=== PATIENT | male | born 1965 | race African-American/Black ===

== ENCOUNTER 2019-09-05 16:55 | Inpatient (IN) | payer OTHER, BC ==
[~2019-09-05] VITALS: Ht 190.5 cm; Wt 82.6 kg
[2019-09-05 17:15] VITALS: BP_SYST 143
--- NOTE | 2019-09-05 18:55 | NUR ---
Patient to ER bed 05 to gown for evaluation. Side rails up.
--- NOTE | 2019-09-05 19:00 | NUR ---
Patient brought in by ambulance in the ED c/o pain on the left big toe that started a couple of days ago. Patient denied any chest pain or shortness of breath. Denied any fevers, chills, nausea, or vomiting. Patient is alert and oriented x2 and respirations even and unlabored. VSS, pain level 4/10. Informed of approximate wait time. Instructed to notify ED staff for any changes in condition or worsening of symptoms. Patient verbalized understanding.
--- NOTE | 2019-09-05 19:15 | NUR ---
systems technician at bedside as ordered by Dr. Pedraza collecting blood specimen. Patient tolerated the procedure well.
--- NOTE | 2019-09-05 19:35 | NUR ---
Report given and care transferred to EDITH Low.
[2019-09-05 19:46] LABS: CALCIUM 7.9 mg/dL (8.4-11.0); CREATININE 0.87 mg/dL (0.55-1.30)
[2019-09-05 19:47] LABS: BASOPHILS # (AUTO) 0.1 K/uL (0.0-0.2); BASOPHILS % (AUTO) 0.8 % (0.0-2.0); EOSINOPHILS # (AUTO) 0.1 K/uL (0.0-0.4); EOSINOPHILS % (AUTO) 1.2 % (0.0-4.0); HEMOGLOBIN 10.1 g/dL (14.0-18.0); LYMPHOCYTES # (AUTO) 1.2 K/uL (1.0-5.5); LYMPHOCYTES % (AUTO) 12.2 % (20.5-51.5); MEAN CORPUSCULAR HEMOGLOBIN 31 pg (27-31); MEAN CORPUSCULAR HGB CONC 34 % (32-36); MEAN CORPUSCULAR VOLUME 92 fL (79.0-98.0); MONOCYTES # (AUTO) 0.5 K/uL (0.0-1.0); MONOCYTES % (AUTO) 4.9 % (1.7-9.3); NEUTROPHILS # (AUTO) 7.8 K/uL (1.8-7.7); NEUTROPHILS % (AUTO) 80.9 % (40.0-70.0); PLATELET COUNT (AUTO) 267 K/uL (130-430); RED BLOOD CELL COUNT(AUTO) 3.26 MIL/uL (4.2-6.2); RED CELL DISTRIBUTION WIDTH 13.9 % (9.0-15.0); WHITE BLOOD COUNT (AUTO) 9.6 K/uL (4.8-10.8)
[2019-09-05 19:51] LABS: ALBUMIN 1.7 g/dL (3.4-4.8); TOTAL BILIRUBIN 0.3 mg/dL (0.0-1.0)
[2019-09-05 19:52] LABS: POTASSIUM 2.8 mmol/L (3.5-5.1)
--- NOTE | 2019-09-05 20:00 | NUR ---
Dr. Aguillon bedside for pt eval
[2019-09-05] MEDS ORDERED: AMPICILLIN SODIUM/SULBACTAM NA 3 GM in NS 100 ML IV ONE (20:15)
[2019-09-05] MEDS ORDERED: BACITRACIN 1 GM OINT TP ONE (20:15)
[2019-09-05] MEDS ORDERED: fentaNYL CITRATE/PF 100 MCG/2 ML AMP IVP ONE (20:15)
[2019-09-05 20:30] LABS: CALCIUM 8.3 mg/dL (8.4-11.0); CREATININE 0.86 mg/dL (0.55-1.30)
[2019-09-05] MEDS ORDERED: AMPICILLIN SODIUM/SULBACTAM NA 3 GM VIAL ONE (20:34)
[2019-09-05 20:36] LABS: POTASSIUM 2.8 mmol/L (3.5-5.1)
--- NOTE | 2019-09-05 20:45 | NUR ---
Pt BIBA to ED with history of diabetes, COPD, neuropathy, BPH, and PVD who was brought in by EMS for evaluation of acute onset, constant left great toe pain and swelling for the past few days. The patient reports he was instructed by his fdc to seek evaluation of a suspected infection to his left great toe that was wrapped upon arrival to the ED. He complains his left great toe pain is severe in nature and non-radiating. The patient does not endorse taking medication for his symptoms. Upon examination, the patient has requested Dilaudid and states Morphine does not help his pain
[2019-09-05] MEDS ORDERED: NACL 0.9% 1,000 ML IV SCH (21:45)
[2019-09-05] MEDS ORDERED: INSULIN REGULAR, HUMAN 100 UNITS/ML, 10 ML VIAL (humuLIN R) SUBCUT PRN (21:45)
[2019-09-05] MEDS ORDERED: KCL 20 mEq in D5NS 1000 mL 1,000 ML IV ONE (21:45)
[2019-09-05] MEDS ORDERED: KCL 20 mEq in 100 mL (PREMIX) 100 ML IV ONE (21:45)
--- NOTE | 2019-09-05 21:52 | NUR ---
VSS no s/s of acute distress Resting on gurney rails up
--- NOTE | 2019-09-05 22:30 | NUR ---
Remains in stable condition
--- NOTE | 2019-09-05 23:35 | NUR ---
Patient will be admitted to care of [facility]. Admitted to Tele unit. Will go to room 109A. Belongings list completed. Complete and up to date summary report printed. SBAR report to be given at bedside with opportunity for questions.
--- NOTE | 2019-09-05 23:35 | NUR ---
ADMISSION NOTE Received patient from ER via melissa, received report from LAVERNE SHARMA. Patient admitted with diagnosis of LEFT FOOT GANGRENE. Patient oriented to hospital routine, call light, toileting and safety-patient verbalized understanding.
--- NOTE | 2019-09-05 23:35 | NUR ---
Note lise in ED - 09/06/19 at 0552 by VINEET Transfer to [facility] via ACLS protocol. Licensed nurse present. IV present no signs or symptoms of infiltration.
[2019-09-05 23:37] VITALS: BP_SYST 121
--- NOTE | 2019-09-06 | NUR ---
RECEIVED PT IN BED V/S AND ASSESSMENT DONE SAME STABLE ,PT APPEARS TO BE VERY ANGRY WITH A FLAT AFFECT ,REFUSING TO COMPLY WITH ORDERS.
--- NOTE | 2019-09-06 01:05 | NUR ---
PT REFUSED ACCU CHECK AND OTHER CARE
--- NOTE | 2019-09-06 04:00 | NUR ---
MEDICATED FOR PAIN WITH GOOD EFFECT.PT REMAINS SUICIDAL ROOM CHANGE THIS AM FOR SITTER.
[2019-09-06] MEDS ORDERED: ONDANSETRON HCL 4 MG/2 ML VIAL IVP PRN (05:00)
[2019-09-06] MEDS ORDERED: MORPHINE 2 MG/ML INJ. SYRINGE IVP PRN ×2 (05:00)
--- NOTE | 2019-09-06 05:31 | NUR ---
pt refused monitor,iv fluids infusing, notified of pt c/o pain meds ordered and given ,pt c/of sucidial ideation ,psych consult ordered ,and sitter ordered at bedside.
[2019-09-06 06:14] LABS: BASOPHILS # (AUTO) 0.1 K/uL (0.0-0.2); BASOPHILS % (AUTO) 0.8 % (0.0-2.0); EOSINOPHILS # (AUTO) 0.1 K/uL (0.0-0.4); EOSINOPHILS % (AUTO) 0.9 % (0.0-4.0); HEMATOCRIT 32.8 % (36-54); LYMPHOCYTES # (AUTO) 0.7 K/uL (1.0-5.5); MEAN CORPUSCULAR HEMOGLOBIN 31 pg (27-31); MEAN CORPUSCULAR HGB CONC 34 % (32-36); MEAN CORPUSCULAR VOLUME 92 fL (79.0-98.0); MONOCYTES # (AUTO) 0.4 K/uL (0.0-1.0); MONOCYTES % (AUTO) 4.3 % (1.7-9.3); NEUTROPHILS # (AUTO) 7.9 K/uL (1.8-7.7); PLATELET COUNT (AUTO) 306 K/uL (130-430); RED BLOOD CELL COUNT(AUTO) 3.57 MIL/uL (4.2-6.2); RED CELL DISTRIBUTION WIDTH 14.4 % (9.0-15.0); WHITE BLOOD COUNT (AUTO) 9.2 K/uL (4.8-10.8)
--- NOTE | 2019-09-06 06:51 | NUR ---
PT IN NO DISTRESS AT THIS TIME
[2019-09-06 06:52] LABS: PROTHROMBIN TIME 10.2 SECS (9.5-12.5)
[2019-09-06 06:59] LABS: CALCIUM 8.4 mg/dL (8.4-11.0); CREATININE 0.92 mg/dL (0.55-1.30); POTASSIUM 3.2 mmol/L (3.5-5.1)
--- NOTE | 2019-09-06 07:51 | NUR ---
Psych consult called: for Dr. Gonzalez, regarding schizophrenia w/suicidal thoughts, ordered by Dr. Mahoney ,spoke with Giovanna. Face sheet faxed to [phone]
--- NOTE | 2019-09-06 08:15 | NUR ---
patient aaox 4. has iv access on the rt forearm #22. with normal saline at 60cc/hr infusing. on well. has wearing all black jacket and pants refused to have gown on. has dressing on the left foot. dry/intact.
--- NOTE | 2019-09-06 08:15 | NUR ---
patient moved to from room 129 and to 132-A
--- NOTE | 2019-09-06 09:56 | NUR ---
refused to eat breakfast he ordered food outside.
[2019-09-06] MEDS ORDERED: CRAN450C PO (10:26)
[2019-09-06] MEDS ORDERED: ZINC220T4 PO (10:26)
[2019-09-06] MEDS ORDERED: CYAN250014 PO (10:26)
[2019-09-06] MEDS ORDERED: MULT-300 PO (10:26)
[2019-09-06] MEDS ORDERED: ASPI-1153 PO (10:26)
[2019-09-06] MEDS ORDERED: ASCO500T20 PO (10:26)
[2019-09-06] MEDS ORDERED: TAMS-11 PO (10:26)
[2019-09-06] MEDS ORDERED: BETH50TA8 PO (10:26)
[2019-09-06] MEDS ORDERED: FERR-69 PO (10:26)
[2019-09-06] MEDS ORDERED: LACT1TAB11 PO (10:26)
--- NOTE | 2019-09-06 10:30 | NUR ---
REFUSED TO TAKE VITALS SIGNS AND MEDICATION.
--- NOTE | 2019-09-06 10:52 | NUR ---
refused vitals signs taken. refused to have blood sugar checked.
--- NOTE | 2019-09-06 10:53 | NUR ---
refused to be assisted. awaiting for dr bishop to come
--- NOTE | 2019-09-06 11:36 | NUR ---
SS NOTES/SUICIDE RISK: BIG DATA LEAD was referred by nursing to see a patient for suicide risk. Anaya SHARMA also stated pt want's to AMA. Pt was alert and oriented x4. Pt appears to be disheveled with irritable mood, uncooperative and guarded attitude, normal speech, angry affect and limited eye contact. BIG DATA LEAD met with patient at bedside, explained role and reason for the visit. Pt who appears to be irritated when asked about the suicide risk referral. Pt stated "you are the third person that has asked me that question and please stop asking". Pt is diagnosed with depression and denies suicidal ideation; pt refuses to answer further questions. Pt is homeless and was at [facility] for wound care. Pt kept repeating self that he will leave at 12PM to retrieve his valuables from [facility]. BIG DATA LEAD kept assuring patient that his bed is on bed hold for him and SS will contact the Marilu REYNOLDS from [facility] to arrange for valuable drop off. BIG DATA LEAD informed Marilu from [facility] that pt will AMA if he doesn't get his valuables; Marilu will make arrangements. BIG DATA LEAD spoke with patient again regarding the plan, pt stated he will leave regardless and retrieve his valuables at [facility] himself. Pt refused to accept homeless assistance resource, refused transportation or meals prior to discharge. Homeless Waiver attached on chair and Anaya SHARMA notified of the plan.
[2019-09-06] MEDS ORDERED: LORazepam 1 MG TABLET PO ONE (11:45)
[2019-09-06] MEDS ORDERED: POTASSIUM CHLORIDE 20 MEQ TAB.PRT.SR PO ONE (11:45)
[2019-09-06] MEDS ORDERED: LORazepam 2 MG/ML VIAL IVP ONE (11:45)
--- NOTE | 2019-09-06 12:00 | NUR ---
offered to changed the dressing on both feet and he refused and said no and no.
--- NOTE | 2019-09-06 12:45 | NUR ---
iv access removed. bp cuff removed. verbalized wants orange juice and given to the patient. will continue to monitor patients status.
--- NOTE | 2019-09-06 12:50 | NUR ---
case filler named arianna came from [facility] to talked to the patient and verbalized wants to leave now.
--- NOTE | 2019-09-06 12:55 | NUR ---
patient left in stable condition. discharge against medical advice signed. call dr bishop for follow up.
--- NOTE | 2019-09-06 14:30 | NUR ---
called dr bishop regarding the patient discharge against medical advice and signed. 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
[2019-09-06] MEDS ORDERED: BETHANECHOL CHLORIDE 25 MG TABLET (URECHOLINE) PO SCH (15:00)
[2019-09-06] MEDS ORDERED: ASCORBIC ACID 500 MG TABLET PO SCH (21:00)
[2019-09-07] MEDS ORDERED: TAMSULOSIN HCL 0.4 MG CAP PO SCH (09:00)
[2019-09-07] MEDS ORDERED: ASPIRIN 81 MG TABLET(ECOTRIN) PO SCH (09:00)
== END 2019-09-06 12:55 | disposition left against medical advice (07) | DRG 300 ==
LOC: SED 16:55 → STU 21:41
PROVIDERS: ADMIT Internal Medicine; ATTEND Internal Medicine
DX: E11.52 Type 2 diabetes mellitus with diabetic peripheral angiopathy with gangrene (principal); I96 Gangrene, not elsewhere classified; L03.032 Cellulitis of left toe; J44.9 Chronic obstructive pulmonary disease, unspecified; E11.40 Type 2 diabetes mellitus with diabetic neuropathy, unspecified; N40.0 Benign prostatic hyperplasia without lower urinary tract symptoms; I87.2 Venous insufficiency (chronic) (peripheral); F17.210 Nicotine dependence, cigarettes, uncomplicated; Z79.899 Other long term (current) drug therapy
CPT/HCPCS: 36415; 71045; 80048; 80053; 83605; 85025; 85610-TC; 85651-TC; 87040-TC; 87081; 96365; 96375; 99285; G0378; J0295; J2270; J3010